=== PATIENT | male | born 1985 | race Caucasian/White ===

== ENCOUNTER 2020-04-06 16:45 | Observation (INO) | payer MEDICAID ==
[2020-04-06] VITALS (10 sets, daily range): BP systolic 112–128; BP diastolic 64–84; Ht 182.9 cm; Wt 69.7 kg
[~2020-04-06] VITALS: Ht 182.9 cm; Wt 69.7 kg
[2020-04-06 17:09] LABS: BASOPHILS 0.2 % (0-2); EOSINOPHILS 1.1 % (0-7); HEMATOCRIT 45.1 % (42.0-54.0); HEMOGLOBIN 14.5 g/dL (13.5-17.5); IMMATURE GRANULOCYTES 0.2 % (0-5); LYMPHOCYTES 26.7 % (15-50); MCH 29.3 pg (26.0-34.0); MCHC 32.2 g/dL (31.0-37.0); MCV 91.1 fL (80.0-100.0); MEAN PLATELET VOLUME 8.9 fL (7.4-10.4); NEUTROPHILS 67.8 % (40-80); PLATELET COUNT 372 10x3/uL (130-400); RBC 4.95 10x6/uL (4.20-6.10); RDW 12.9 % (11.5-14.5); WBC 5.3 10x3/uL (4.8-10.8)
[2020-04-06 17:18] LABS: ANION GAP 14.2 mmol/L (8-16); CALCIUM 8.6 mg/dL (8.5-10.1); CARBON DIOXIDE 26.8 mmol/L (21.0-32.0); CREATININE - SERUM 1.5 mg/dL (0.6-1.3)
[2020-04-06 17:25] LABS: ALBUMIN 4.4 g/dL (3.4-5.0); BILIRUBIN - TOTAL 1.36 mg/dL (0.2-1.3); MAGNESIUM - SERUM 2.4 mg/dL (1.8-2.4)
--- NOTE | 2020-04-06 18:15 | NUR ---
PT LAYING IN BED. NO DISTRESS NOTED. COLOR WNL FOR RACE RESPIRATIOSN ARE EVEN AN DUNLABORED. PT AWAKENS TO VERBAL STIMULI.
--- NOTE | 2020-04-06 18:56 | NUR ---
ATTEMPTED TO CALL REPORT. PER [facility]LL CLERK UNABLE TO CALL REPORT AT THIS TIME.
[2020-04-06 19:12] LABS: BILIRUBIN NEGATIVE (NEGATIVE); GLUCOSE NEGATIVE (NEGATIVE); KETONE NEGATIVE (NEGATIVE); NITRITE NEGATIVE (NEGATIVE); UROBILINOGEN NORMAL (NORMAL)
[2020-04-06 19:16] LABS: UDS - AMPHET POSITIVE QUAL (NEGATIVE); UDS - BARB NEGATIVE QUAL (NEGATIVE); UDS - BENZO POSITIVE QUAL (NEGATIVE); UDS - COCAINE POSITIVE QUAL (NEGATIVE); UDS - OPIATE POSITIVE QUAL (NEGATIVE); UDS - PCP NEGATIVE QUAL (NEGATIVE); UDS - THC POSITIVE QUAL (NEGATIVE)
--- NOTE | 2020-04-06 21:30 | NUR ---
REC'D PT FROM ER VIA STRETCHER AT 2100 ACCOMPANIED BY ER STAFF. PT ABLE TO FOLLOW COMMANDS AND GOT HIMSELF OVER ONTO THE HOSP BED. INTITIAL ASSESSMENT COMPLETED AND RECORDED PER ADMISSION ASSESSMENT. DENIES NEEDS EXCEPT WATER. DOES NOT WANT THE ORDERED NICOTINE PATCH SO WILL HOLD. ORIENTED TO ROOM, BROTHER IN WAITING ROOM. ASKED PT IF HE WANTED TO SEE OR FOR US TO GIVE ANY INFO. HE STATED 'IF ANYONE WANTS ANY INFO, THEY WILL HAVE TO COME UP HERE TO GET IT. LET HIS BROTHER BACK FOR A FEW MINUTES.
--- NOTE | 2020-04-06 23:45 | NUR ---
NO CHANGES IN INITIAL ASSESSMENTS SINCE GOING TO SLEEP WITH NARCAN INFUSING AT 0.0025 MG/KG/HR. IS EASILY AROUSED BY VERBAL STIMULUS, DENIES NEEDS. WILL CONT TO MONITOR.
[2020-04-07] VITALS (20 sets, daily range): BP systolic 92–130; BP diastolic 50–72
--- NOTE | 2020-04-07 02:37 | NUR ---
STOPPED NARCAN DRIP AT 0150 AND WILL MONITOR RESPONSE. IS STILL LAYING QUIETLY, VSS. BUT AROUSING EASILY. CONT WITH PLAN OF CARE
[2020-04-07 03:49] LABS: BASOPHILS 0.1 % (0-2); EOSINOPHILS 0.6 % (0-7); HEMATOCRIT 39.5 % (42.0-54.0); HEMOGLOBIN 12.6 g/dL (13.5-17.5); IMMATURE GRANULOCYTES 0.1 % (0-5); LYMPHOCYTES 23.4 % (15-50); MCHC 31.9 g/dL (31.0-37.0); MCV 90.8 fL (80.0-100.0); MEAN PLATELET VOLUME 8.8 fL (7.4-10.4); MONOCYTES 7.1 % (2-11); NEUTROPHILS 68.7 % (40-80); RBC 4.35 10x6/uL (4.20-6.10); RDW 12.9 % (11.5-14.5)
[2020-04-07 03:51] LABS: PLATELET COUNT 258 10x3/uL (130-400); WBC 10.8 10x3/uL (4.8-10.8)
[2020-04-07 04:09] LABS: ALBUMIN 3.3 g/dL (3.4-5.0); ALKALINE PHOSPHATASE 54 U/L (30-120); CARBON DIOXIDE 24.8 mmol/L (21.0-32.0); CHLORIDE - SERUM 108 mmol/L (98-107); MAGNESIUM - SERUM 1.9 mg/dL (1.8-2.4); PHOSPHOROUS 3.1 mg/dL (2.5-4.9); POTASSIUM - SERUM 3.8 mmol/L (3.5-5.1); PROTEIN - SERUM 6.2 g/dL (6.4-8.2); SODIUM 141 mmol/L (136-145); UREA NITROGEN 16 mg/dL (7-18)
[2020-04-07 04:11] LABS: ALT (SGPT) 13 U/L (10-68); CALC OSMOLALITY 280 mosm/kg (275-300); CREATININE - SERUM 0.8 mg/dL (0.6-1.3); GLUCOSE 77 mg/dL (74-106); eGFR NON AFRICAN AMERICAN > 90 mL/min (90-120)
--- NOTE | 2020-04-07 04:15 | NUR ---
CON'T TO BE EASY TO AROUSE WITH VERBAL STIMULUS. O2 SATS REMAIN UPPER 90'S TO 100%. DENIES NEEDS. REPOSITION SELF. ALL VSS.
--- NOTE | 2020-04-07 06:00 | NUR ---
SOMETIMES SLOW TO AROUSE BUT SPEAK WHERE HE CAN HEAR OR TOUCH HIM, HE WAKES UP. O2 SATS 100%, REMAINS SB-SR.
--- NOTE | 2020-04-07 08:22 | NUR ---
LYING IN BED RESTING AT THIS TIME. VSS. NO ACUTE DISTRESS NOTED. PT RESTING WITH RESPIRATIONS STEADY AND UNLABORED RATE. AWAKENS WHEN SPOKEN TO. STATES IS NOT SUICIDAL AND HAS NOT HAD SUICIDAL IDEATIONS OR THOUGHTS OR HARMING SELF, STATED "I WAS JUST BEING A DUMBASS, I DID NOT TRY TO HURT MYSELF." WILL CONTINUE PLAN OF CARE.
--- NOTE | 2020-04-07 10:50 | NUR ---
SITTING UP IN BED AWAKE AT THIS TIME. DENIES ANY NEEDS. VSS. NO ACUTE DISTRESS NOTED. WILL CONTINUE PLAN OF CARE.
--- NOTE | 2020-04-07 11:01 | NUR ---
PER DR MAGAÑA, OKAY TO TRANSFER TO FLOOR AND IF OKAY WITH PSYCH ([facility] CONSULT) THEN CAN DC PT HOME. VSS. NO ACUTE DISTRESS NOTED. WILL CONTINUE PLAN OF CARE.
--- NOTE | 2020-04-07 13:51 | NUR ---
NO ACUTE DISTRESS NOTED. PT DENIES ANY NEEDS. VSS. WILL CONTINUE PLAN OF CARE.
--- NOTE | 2020-04-07 15:39 | NUR ---
NO ACUTE DISTRESS NOTED. NO CHANGE. VSS. WILL CONTINUE PLAN OF CARE.
--- NOTE | 2020-04-07 16:08 | NUR ---
PER LOUISE BLACK, DR JAMESON PHAN, RECCOMENDED OUTPATIENT REHAB FOR SUBSTANCE ABUSE. WILL NOTIFY DR MAGAÑA OF THIS FOR FUTHER ORDERS.
--- NOTE | 2020-04-07 17:01 | NUR ---
DR MAGAÑA CALLED REGARDING NOTE FROM PSYCH CONSULT. STATED PT IS MEDICALLY STABLE TO DISCHARGE HOME. ORDERS RECIEVED TO DISCHARGE PT HOME. ALSO NOTIFIED CASE MANAGEMENT OF PSYCH RECCOMENDATION FOR OUTPATIENT SUBSTANCE ABUSE PROGRAM THROUGH [facility], RECIEVED INFORMATION CARD TO GIVE PT FOR THIS RECCOMENDATION. WILL DISCHARGE PT HOME PER ORDERS.
--- NOTE | 2020-04-07 17:44 | NUR ---
PT STATING IS CALLING FAMILY TRYING TO FIND A RIDE HOME.
--- NOTE | 2020-04-07 18:13 | NUR ---
DISCHARGED HOME AT THIS TIME. LEFT WITH ALL PERSONAL ITEMS, DISCHARGE PAPERWORK, AND INFORMATION REGARDING SUBSTANCE ABUSE PROGRAMS. DENIES ANY CONCERNS OR NEEDS. LEFT VIA PERSONAL VEHICLE WITH BROTHER. NO ACUTE DISTRESS NOTED. LT HAND IV DCD, CATHETER TIP INTACT. NO FURTHER ACTIONS.
== END 2020-04-07 18:14 | disposition home or self-care (01) ==
LOC: D.ER 16:45 → D.ICU 17:24 → OBSVTIME 17:24 → D.ICU 17:24
PROVIDERS: Family Medicine; ADMIT Family Medicine; ATTEND Family Medicine
DX: T40.1X1A Poisoning by heroin, accidental (unintentional), initial encounter (principal); N17.9 Acute kidney failure, unspecified; F19.10 Other psychoactive substance abuse, uncomplicated

== ENCOUNTER 2020-05-28 14:29 | Emergency (ER) | payer MEDICAID ==
[~2020-05-28] VITALS: Ht 182.9 cm; Wt 75.0 kg
[2020-05-28 14:37] VITALS: Ht 182.9 cm; Wt 75.0 kg
[2020-05-28 15:26] LABS: BASOPHILS 0.1 % (0-2); EOSINOPHILS 1.2 % (0-7); HEMATOCRIT 38.9 % (42.0-54.0); HEMOGLOBIN 12.9 g/dL (13.5-17.5); IMMATURE GRANULOCYTES 0.1 % (0-5); LYMPHOCYTES 11.3 % (15-50); MCH 29.3 pg (26.0-34.0); MCHC 33.2 g/dL (31.0-37.0); MCV 88.2 fL (80.0-100.0); MEAN PLATELET VOLUME 8.6 fL (7.4-10.4); MONOCYTES 6.9 % (2-11); NEUTROPHILS 80.4 % (40-80); RBC 4.41 10x6/uL (4.20-6.10); RDW 13.4 % (11.5-14.5); WBC 8.1 10x3/uL (4.8-10.8)
[2020-05-28 15:28] LABS: PLATELET COUNT 320 10x3/uL (130-400)
[2020-05-28 15:29] LABS: CALC OSMOLALITY 279 mosm/kg (275-300); CALCIUM 8.4 mg/dL (8.5-10.1); CARBON DIOXIDE 28.2 mmol/L (21.0-32.0); CHLORIDE - SERUM 103 mmol/L (98-107); CREATININE - SERUM 0.9 mg/dL (0.6-1.3); POTASSIUM - SERUM 3.6 mmol/L (3.5-5.1); SODIUM 138 mmol/L (136-145); UREA NITROGEN 15 mg/dL (7-18); eGFR NON AFRICAN AMERICAN > 90 mL/min (90-120)
[2020-05-28 15:31] LABS: GLUCOSE 147 mg/dL (74-106)
[2020-05-28 15:36] LABS: ALBUMIN 3.8 g/dL (3.4-5.0); ALKALINE PHOSPHATASE 73 U/L (30-120); ALT (SGPT) 21 U/L (10-68); BILIRUBIN - TOTAL 0.98 mg/dL (0.2-1.3); PROTEIN - SERUM 7.3 g/dL (6.4-8.2)
[2020-05-28 15:40] LABS: UDS - AMPHET POSITIVE QUAL (NEGATIVE); UDS - BARB NEGATIVE QUAL (NEGATIVE); UDS - BENZO POSITIVE QUAL (NEGATIVE); UDS - COCAINE NEGATIVE QUAL (NEGATIVE); UDS - OPIATE NEGATIVE QUAL (NEGATIVE); UDS - PCP NEGATIVE QUAL (NEGATIVE); UDS - THC POSITIVE QUAL (NEGATIVE)
[2020-05-28 15:41] LABS: BILIRUBIN NEGATIVE (NEGATIVE); KETONE NEGATIVE (NEGATIVE); NITRITE NEGATIVE (NEGATIVE); UROBILINOGEN NORMAL (NORMAL)
[2020-05-28 15:42] LABS: BACTERIA FEW /hpf (NONE SEEN)
[2020-05-28 20:03] VITALS: BP 111/60
== END 2020-05-28 20:05 | disposition home or self-care (01) ==
LOC: D.ER 14:29
PROVIDERS: Emergency Medicine
DX: F11.10 Opioid abuse, uncomplicated (principal); R06.89 Other abnormalities of breathing; F19.10 Other psychoactive substance abuse, uncomplicated